=== PATIENT | female | born 1965 | race Caucasian/White ===

== ENCOUNTER 2023-10-01 00:27 | Emergency (ER) | payer OTHER, SELFPAY ==
--- NOTE | ~2023-10-01 | XR_ITS ---
EXAMINATION: XR wrist RT min 3V INDICATION: Right wrist pain and swelling, initial encounter TECHNIQUE: Four views of the right wrist are obtained. COMPARISON: None available FINDINGS: There is an acute, traumatic, closed, nondisplaced transverse fracture of the distal radius . Soft tissue swelling surrounds the fracture. Alignment at the wrist is normal. No additional fractu re is identified. IMPRESSION: 1. Nondisplaced transverse fracture at the distal radius. Reviewed, dictated and finalized at location [facility]
[2023-10-01 00:28] VITALS: BP 169/93; PULSE 85; RESP 16; TEMP 36.7; O2SAT 100
--- NOTE | 2023-10-01 01:36 | ED.UPPEXIN ---
HPI - Extremity Injury (Upper) General Chief Complaint: Extremity Injury, Upper Stated Complaint: R hand injuy Time Seen by Provider: 10/01/23 01:11 Source: patient Mode of arrival: ambulatory Limitations: no limitations History of Present Illness HPI narrative: Patient is a 57-year-old female who presents ED with report of right wrist pain. Patient reports she was bowling on Monday When she tripped and fell. She attempted to catch herself with her right arm. She felt a pop in her right wrist when she fell. She complains of pain and swelling to her right wrist since then. She denies any other injuries. Denies head injury or LOC. Denies numbness or tingling. Related Data Allergies Allergy/AdvReac Type Severity Reaction Status Date / Time watermelon Allergy Itching Verified 10/01/23 00:57 Review of Systems Review of Systems: CONSTITUTIONAL: Denies fever, chills, or sweats. MUSCULOSKELETAL: see HPI. NEUROLOGIC: Denies Tingling, numbness, or weakness. All systems reviewed & are unremarkable except as noted in HPI and below Exam Narrative: GENERAL: Well appearing, thin, non-toxic, in no acute distress. HEAD: Normocephalic, atraumatic. NECK: Supple. No adenopathy, no masses. RESPIRATORY: Airway patent, respirations nonlabored. CARDIOVASCULAR: Regular rate and rhythm without murmurs, rubs, or gallops. Radial pulses 2+ and equal bilaterally. MUSCULOSKELETAL: Moves all extremities. Mild limited range of motion of right wrist Flexion/extension due to pain. mild swelling noted to right wrist. Tenderness along distal radius. No significant tenderness along distal ulna. Sensation intact. Good capillary refill. SKIN: Warm, dry, normal color. No rashes. NEURO: A&O X3. Speech clear. Cranial nerves II-XII grossly intact. No ataxic movements. PSYCHIATRIC: Appropriate mood and affect. Normal interaction. Course Vital Signs Vital signs: Vital Signs Temperature 98.0 F 10/01/23 00:28 Pulse Rate 85 10/01/23 00:28 Respiratory Rate 16 10/01/23 00:28 Blood Pressure 169/93 H 10/01/23 00:28 Pulse Oximetry 100 10/01/23 00:28 Oxygen Delivery Room Air 10/01/23 00:28 Temperature 98.0 F 10/01/23 00:28 Pulse Rate 85 10/01/23 00:28 Respiratory Rate 16 10/01/23 00:28 Blood Pressure 169/93 H 10/01/23 00:28 Pulse Oximetry 100 10/01/23 00:28 Oxygen Delivery Room Air 10/01/23 00:28 MDM - Extremity Injury (Upper) MDM Narrative Medical decision making narrative: Patient presented to ED with right wrist pain status post FOOSH. tenderness over distal radius on exam. Neurovascularly intact. X-ray of right wrist interpreted by myself with subtle fracture line along distal radius, cortical irregularities. Consistent with acute fracture. Patient placed in short-arm volar splint. Will be given orthopedic information for follow-up. No other injury sustained from fall. Discussed rice therapy, reasons to return. Will send pain medication to the pharmacy. Discharged in stable condition. Medical Records Attestation: I reviewed the patient's medical records. Imaging Data Attestation: I personally reviewed and interpreted this imaging study as follows: My impression: XR R wrist: Subtle oblique fracture line along distal radius. Ulna intact. Discharge Plan Discharge Clinical Impression: Fracture of distal end of radius Qualifiers: Encounter type: initial encounter Fracture type: closed Fracture morphology: unspecified fracture morphology Laterality: right Qualified Code(s): S52.501A - Unspecified fracture of the lower end of right radius, initial encounter for closed fracture Patient Disposition: Home, Self-Care Condition: Stable Instructions: Antibiotic Form, Wrist Fracture in Adults (ED), Splint Care (ED) Additional Instructions: Recommend rest, ice, elevation of right arm. Wear splint until seen by orthopedics. Call orthopedic office on Monday to make follow-up appointm
[2023-10-01] MEDS: KETOROLAC (*BKC) 60 MG/2 ML VIAL IM (01:51)
[2023-10-01] MEDS: HYDROcodone/acetaminophen (*CRX) 5-325 MG TABLET 1 TAB PO (01:51)
== END 2023-10-01 03:07 | disposition home or self-care (01) ==
LOC: ANHED 01:46
PROVIDERS: Emergency Provider Physician Assistant
DX: S52.591A Other fractures of lower end of right radius, initial encounter for closed fracture (principal); W01.0XXA Fall on same level from slipping, tripping and stumbling without subsequent striking against object, initial encounter; Y93.54 Activity, bowling
CPT/HCPCS: 29125; 73110; 96372; 99284; A9270; J1885